=== PATIENT | male | born 2000 | race Caucasian/White ===

== ENCOUNTER → 2023-06-06 | Outpatient (CLI) | payer OTHER, SELFPAY | END | disposition home or self-care (01) | LOC: RAD.FUTURE 07:19 | PROVIDERS: Visit Provider Chiropractor | DX: M13.80 Other specified arthritis, unspecified site (principal) ==

== ENCOUNTER → 2023-06-17 | Outpatient (CLI) | payer OTHER, MEDICAID, SELFPAY ==
--- NOTE | 2023-06-17 11:39 | RAD_ITS ---
STUDY: X-RAY - THORACIC SPINE REASON FOR EXAM: Male, 23 years old. Mid back pain. TECHNIQUE: 2 view(s) of the thoracic spine were obtained on 4 images. COMPARISON: None. FINDINGS: Normal kyphosis of the thoracic spine. Mild thoracolumbar scoliosis. Normal thoracic vertebrae and endplates. Normal disc space heights. Normal soft tissues. RAD/Thoracic Spine 2 Views IMPRESSION: Mild scoliosis. No other abnormality. Electronically Signed: Stephane Whitehead MD at 13:35 EST ,
--- NOTE | 2023-06-17 11:40 | RAD_ITS ---
STUDY: X-RAY - LUMBAR SPINE REASON FOR EXAM: Male, 23 years old. Pain. TECHNIQUE: 2 view(s) of the lumbar spine were obtained. COMPARISON: None FINDINGS: Normal lumbar lordosis. There is no substantial scoliosis. There is a normal alignment of the vertebrae. Partial sacralization of the left transverse process of L5, a normal variant which may be painful. Minimal intervertebral disc space narrowing at L5-S1 without osteophytes. Normal soft tissues. RAD/Lumbar Spine 2 or 3 Views IMPRESSION: Mild intervertebral disc narrowing at L5-S1 with partial sacralization of the left transverse process of the L5 vertebral body which may be a painful normal variant. Electronically Signed: Stephane Whitehead MD at 13:25 EST ,
== END | disposition home or self-care (01) ==
LOC: RAD 11:38
PROVIDERS: PCP Family Medicine; Referring Provider Chiropractor; Visit Provider Chiropractor
DX: M13.80 Other specified arthritis, unspecified site (principal)
CPT/HCPCS: 72070; 72100